=== PATIENT | female | born 1975 | race Caucasian/White ===

== ENCOUNTER 2019-04-21 12:30 | Outpatient (RCR) | payer OTHER, SELFPAY ==
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
--- NOTE | 2019-04-16 08:25 | PCPTNOTE ---
Patient called & cancelled scheduled appointment this date due to receiving an injection at pain clinic appointment.[ ]
--- NOTE | 2019-04-23 13:20 | PCPTNOTE ---
Patient did not show up for scheduled appointment this date.
--- NOTE | 2019-04-26 13:06 | PCPTNOTE ---
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 Original Note: Patient did not show up for scheduled appointment this date. Phone call made, message left. Reminded patient of next appointment.
--- NOTE | 2019-04-28 11:46 | PCPTNOTE ---
PHYSICAL THERAPY DISCHARGE NOTE Admitting Provider: Attending Provider: Stephanie Mcclain DO Patient:Stephanie John Date of :1975 Stephanie has called to cancel all of her appointments. She was seen for the evaluation and 1 treatment. While supine on 04/21/2019 during performance of jt and soft tissue mobilization relief to C6,7 radicular pain/symptoms was achieved but once erect - her symptoms began to return. Since she is not returning to PT, she will be discharged from physical therapy at this time. Increase time was spent with discussion of why she is having the R upper quadrant symptoms, how positioning of head/neck does affect her R arm symptoms, and how to promote relief of her symptoms at the 2 visits that she was seen. Thank you for referring Stephanie to [facility]. Please review, sign, date and return this discharge summary KAZ. I have been updated about Stephanie's current status and I agree with discharge from the above service at this time. Referring Physician Date
== END 2019-05-04 10:55 | disposition home or self-care (01) ==
LOC: ANHHIPT 12:30
PROVIDERS: PCP Family Medicine; Visit Provider Family Medicine
DX: M54.12 Radiculopathy, cervical region (principal)
CPT/HCPCS: 97110; 97140; 97162

== ENCOUNTER → 2020-07-05 08:53 | Outpatient (CLI) | payer OTHER, SELFPAY ==
[2020-07-05 20:20] LABS: SARS-CoV-2 RNA PCR Negative
== END ==
PROVIDERS: PCP Family Medicine; Visit Provider Family Medicine
DX: R05 Cough (principal); Z20.822 Contact with and (suspected) exposure to COVID-19
CPT/HCPCS: C9803; U0003; U0005